=== PATIENT | female | born 1965 | race Caucasian/White ===

== ENCOUNTER 2024-01-29 15:38 | Emergency (ER) | payer OTHER, SELFPAY ==
--- NOTE | ~2024-01-29 | CT_ITS ---
EXAMINATION: CT HEAD WITHOUT CONTRAST CLINICAL INFORMATION: Blunt head trauma without loss of consciousness, significant head injury and posttraumatic headache. COMPARISON: None available. TECHNIQUE: Contiguous axial imaging was performed from the skull base to vertex without intravenous administration of contrast. This CT examination was performed using dose optimization techniques as appropriate, variously including the following: *Automated exposure control *Adjustment of mA and/or kV according to patient size (this includes techniques or standardized protocols for targeted exams where dose is matched to indication/reason for exam; i.e. extremities or head) *Use of iterative reconstruction technique DLP: 650 mGy-cm FINDINGS: Ventricles, sulci and cisterns are normal. There is no midline shift, no abnormal intra- or extra- axial fluid accumulation. Carpio and white matter differentiation is normal. Bone window images show no evidence of skull fracture. CT/CT head/brain wo IV con IMPRESSION: 1. Normal CT scan of the brain. 2. No intracranial hemorrhage or skull fracture is seen. 3. No evidence of space occupying lesion could be found. 4. The current plain CT scan of the brain shows no diagnostic evidence of acute cerebral infarction.
[2024-01-29 15:46] VITALS: BP 134/63; PULSE 60; RESP 16; TEMP 36.6; O2SAT 97; BMI 32.3
--- NOTE | 2024-01-29 16:07 | ECG_ITS ---
Test Reason : SYNCOPE Blood Pressure : / mmHG Vent. Rate : 059 BPM Atrial Rate : 059 BPM P-R Int : 184 ms QRS Dur : 084 ms QT Int : 402 ms P-R-T Axes : 053 022 030 degrees QTc Int : 397 ms Sinus bradycardia Otherwise normal ECG No previous ECGs available Referred By: Carlos Johnson Electronically Signed By:SAMSON HDZ
--- NOTE | 2024-01-29 16:11 | ED.GENADULT ---
HPI - General Adult General Chief complaint: Syncope Stated complaint: SYNCOPAL EPISODE AFTER BLOOD DRAW Time Seen by Provider: 01/29/24 15:58 Source: patient Mode of arrival: ambulatory Limitations: no limitations History of Present Illness HPI narrative: This is a 58-year-old woman with a past medical history of hypertension, hyperlipidemia, [id number] diabetes mellitus who was brought in by EMS for evaluation of syncope. Patient states that she was having a blood work done, stood up felt lightheaded. Patient reports subsequently falling and hitting her head. She states no complaints at this time. She states no headache. She states she takes no blood thinning medications. She states no neck pain, extremity weakness or paresthesias. She states no vision changes or speech changes. She states no associated chest pain, dyspnea, palpitations, abdominal pain, back pain or nausea/vomiting. She states that she has previously passed out in the past. She states no dysuria, urinary frequency/urgency, change to bowel habits, melena or hematochezia. Related Data Allergies Allergy/AdvReac Type Severity Reaction Status Date / Time No Known Allergies Allergy Verified 01/29/24 15:51 Review of Systems Review of Systems: ROS as per [facility] Social History Social History Smoked in Last 30 Days: Yes Use of substances other than those prescribed or required for medical reasons: No Advance Directives: No Advance Directives Information Provided: No Physical Exam ED Vital Signs: Vital Signs - 24 hr 01/29/24 15:46 01/29/24 18:00 01/29/24 18:00 Temperature 98 F Pulse Rate 60 65 Respiratory Rate 16 14 Blood Pressure 134/63 Pulse Oximetry 97 99 100 Oxygen Delivery Method Room Air Room Air Room Air 01/29/24 19:00 01/29/24 19:15 Temperature 98.0 F 98.0 F Pulse Rate 67 67 Respiratory Rate 16 16 Blood Pressure 111/63 111/63 Pulse Oximetry 100 100 Oxygen Delivery Method Room Air Room Air BMI result Body Mass Index 32.3 Gen: NAD, AOx3 HEENT: NCAT, no periorbital or postauricular ecchymosis, EOMI, normal conjunctiva CV: RRR Pulm: CTAB, no increased work of breathing GI: Soft, NTND, no rebound, guarding or rigidity MSK: No midline vertebral tenderness to palpation, full range of motion with neck flexion/extension and lateral 45 rotation Neuro: Grossly non focal Medical Decision Making Medical Decision Making [facility] [place] Narrative: Differential diagnosis includes, but is not limited to vasovagal syncope, presyncope, electrolyte abnormality, traumatic intracranial hematoma/hemorrhage. Patient is afebrile and hemodynamically stable on room air. Exam is benign and reassuring. I reviewed and interpreted labs, which are noncontributory. I reviewed and interpreted EKG, which is unremarkable for any acute findings. Diagnostic imaging studies are unremarkable for any acute findings. Patient is greater than equal to 60 years of age, some have extremity paresthesias or dangerous mechanism of injury. Patient has low risk factors such as sitting seen in the ED, ambulatory independently and no neck pain. Further, she has no midline vertebral tenderness. Patient is able to actively rotate neck 45? left right. For these reasons, CT imaging of the cervical spine is not obtained. On re-examination, patient is well-appearing and in no acute distress. ?Patient states symptoms have resolved. ?I suspect patient's symptoms are secondary to vasovagal syncope and there is no indication for further emergent evaluation in this otherwise well-appearing patient as above. ?Patient is provided written and verbal instructions, educational materials, recommendations for outpatient follow-up, strict return precautions and teach back is performed. ?Patient states understanding and agreement with plan of care. ?Patient is discharged home in stable and improved condition. Admission/Observation Consideration of admission/observation: Escalation of care including admission/observation considered Lab Data [facility] [place] Lab Attestation statement: I reviewed the patient's lab results. 01/29/24 17:09 01/29/24 17:09 Labs: Lab Results 01/29/24 Range/Units 17:09 WBC 14.7 H (4.8-10.8) X10*3/uL RBC 3.62 L (4.20-5.50) X10*6/uL Hgb 10.9 L (12.0-16.0) g/dl Hct 33.0 L (37.0-47.0) % MCV 91.2 (80.0-98.0) fL MCH 30.1 (27.0-33.0) pg MCHC 33.0 (31.0-35.0) g/dl RDW 14.3 (11.0-16.0) % Plt Count 307 (160-400) X10*3/uL MPV 10.7 (9.4-12.3) fL Immature Gran % (Auto) 0.3 (0.0-0.4) % Neut % (Auto) 76.6 H (45-73) % Lymph % (Auto) 16.9 L (20-40) % Union % (Auto) 4.6 (2-11) % Eos % (Auto) 1.3 (0-4) % Baso % (Auto) 0.3 (0-2) % Lymph # (Auto) 2.5 (1.2-4.9) X10*3/uL Union # (Auto) 0.7 (0.1-1.2) X10*3/uL Eos # (Auto) 0.2 (0.0-0.4) X10*3/uL Baso # (Auto) 0.1 (0.0-0.2) X10*3/uL Abs Immat Gran (auto) 0.04 H (0.00-0.03) X10*3/uL Absolute Neuts (auto) 11.2 H (2.0-8.3) x10*3/uL Absolute Nucleated RBC 0.000 (0.0-0.012) X10*3/uL Nucleated RBC % (auto) 0.0 (0.0-0.2) /100WBC Sodium 141 (135-145) mmol/L Potassium 4.6 (3.3-5.1) mmol/L Chloride 106 (96-108) mmol/L Carbon Dioxide 23 (22-29) mmol/L Anion Gap 17 (12-20) BUN 13 (9-16) mg/dL Creatinine 1.02 (0.5-1.4) mg/dL Estim Creat Clear Calc 55.7 Estimated GFR 56 Random Glucose 92 (60-115) mg/dL Calcium 9.8 (8.4-10.2) mg/dL Independent Interpretation I performed an independent interpretation of an: EKG Interpretation: EKG shows sinus bradycardia at 59 beats per minute, ID 184, QRS 84, QTC 397, no Brugada morphology, no dagger-like Q-waves, no epsilon wave, no delta waves, no STEMI (no previous EKG for comparison) Radiology Impression Discussion of test interpretation with radiology: I have reviewed the radiologist's reading. Radiologist Impression: CT/CT head/brain wo IV con IMPRESSION: 1. Normal CT scan of the brain. 2. No intracranial hemorrhage or skull fracture is seen. 3. No evidence of space occupying lesion could be found. 4. The current plain CT scan of the brain shows no diagnostic evidence of acute cerebral infarction. Dictated By: Trino Luo Signed By: <Electronically signed by Trino Luo in [place]> 01/29/24 1641 Discharge Plan Discharge Clinical Impression: Vasovagal syncope Patient Disposition: Home, Self-Care Instructions: Syncope (ED) Additional Instructions: You were seen and evaluated in the emergency room. Your vital signs were normal and he did not have fever. ? Your blood work was normal. Your EKG and CT of your head were normal. Please follow-up with your primary care doctor in the next 5-7 days. ? Please return to the emergency room if you develop any worsening symptoms including, but not limited to loss of consciousness, severe headache, nausea/vomiting, inability to eat/drink, chest pain or difficulty breathing. ? Interventions: ED Discharge Assessment Last Done: 01/29/24 19:15 Discharge Date/Time: 01/29/24 19:16 Print Language: Hebrew
[2024-01-29 17:13] LABS: MANUAL DIFF FLAG NO
[2024-01-29 17:18] LABS: Basophils Absolute Auto 0.1 X10*3/uL (0.0-0.2); Basophils Percent Auto 0.3 % (0-2); Eosinophils Absolute Auto 0.2 X10*3/uL (0.0-0.4); Eosinophils Percent Auto 1.3 % (0-4); Hemoglobin 10.9 g/dl (12.0-16.0); Imm Gran Abs Auto 0.04 X10*3/uL (0.00-0.03); Imm Gran Pct Auto 0.3 % (0.0-0.4); Lymphocytes Absolute Auto 2.5 X10*3/uL (1.2-4.9); Lymphocytes Percent Auto 16.9 % (20-40); Mean Corpuscular Hemoglobin 30.1 pg (27.0-33.0); Mean Corpuscular Volume 91.2 fL (80.0-98.0); Mean Platelet Volume 10.7 fL (9.4-12.3); Monocytes Absolute Auto 0.7 X10*3/uL (0.1-1.2); Monocytes Percent Auto 4.6 % (2-11); Neutrophils Absolute Auto 11.2 x10*3/uL (2.0-8.3); Neutrophils Percent Auto 76.6 % (45-73); Platelet Count 307 X10*3/uL (160-400); Red Blood Count 3.62 X10*6/uL (4.20-5.50); Red Cell Distribution Width 14.3 % (11.0-16.0); White Blood Count 14.7 X10*3/uL (4.8-10.8)
[2024-01-29 17:39] LABS: Anion Gap 17 (12-20); Blood Urea Nitrogen 13 mg/dL (9-16); Calcium 9.8 mg/dL (8.4-10.2); Carbon Dioxide 23 mmol/L (22-29); Chloride 106 mmol/L (96-108); Creatinine Clr Calc Pharmacy 55.7; Estimated Glomerular Filt Rate 56; Glucose Random 92 mg/dL (60-115); Potassium 4.6 mmol/L (3.3-5.1); Sodium 141 mmol/L (135-145)
[2024-01-29 18:00] VITALS: PULSE 65; RESP 14; O2SAT 100; O2SAT 99
[2024-01-29 19:00] VITALS: BP 111/63; PULSE 67; RESP 16; TEMP 36.7; O2SAT 100
[2024-01-29 19:15] VITALS: BP 111/63; PULSE 67; RESP 16; TEMP 36.7; O2SAT 100
== END 2024-01-29 19:16 | disposition home or self-care (01) ==
PROVIDERS: Emergency Provider Emergency Medicine
DX: R55 Syncope and collapse (principal); R00.1 Bradycardia, unspecified; Z79.899 Other long term (current) drug therapy
CPT/HCPCS: 36415; 70450; 80048; 85025; 93005; 99284; 99285

== ENCOUNTER → 2024-01-29 16:07 | Outpatient (BNV) | payer OTHER, SELFPAY | PROVIDERS: Emergency Provider Emergency Medicine; Visit Provider Internal Medicine | DX: R55 Syncope and collapse (principal); R00.1 Bradycardia, unspecified | CPT/HCPCS: 93010 ==